=== PATIENT | male | born 2000 | race Asian ===

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

== ENCOUNTER 2024-06-22 14:03 | Emergency (ER) | payer OTHER ==
[~2024-06-22] VITALS: Ht 162.6 cm; Wt 100.0 kg
[~2024-06-22 14:03] MED LIST changes: -LISI-660 PO; +METF500T PO
[2024-06-22 14:09] VITALS: BP 143/82; PULSE 126; RESP 16; TEMP 98.3; O2SAT 98
[2024-06-22 14:19] LABS: COVID AG,FIA SOURCE NASAL SWAB
[2024-06-22 14:36] LABS: SARS-COV2 (COVID) ANTIGEN,FIA Negative (Negative)
[2024-06-22 14:37] LABS: INFLUENZA TYPE A NEGATIVE FOR TYPE A (NEGATIVE); INFLUENZA TYPE B NEGATIVE FOR TYPE B (NEGATIVE)
[2024-06-22 16:00] LABS: BASOPHILS % (AUTO) 0.4 % (0.0-2.0); EOSINOPHILS % (AUTO) 1.5 % (1.0-6.0); HEMATOCRIT 43.9 % (41-53); HEMOGLOBIN 14.3 g/dL (13.5-17.5); MEAN CORPUSCULAR HEMOGLOBIN 27.9 pg (26.0-34.0); MEAN CORPUSCULAR HGB CONC 32.6 G/dL (31.0-37.0); MEAN CORPUSCULAR VOLUME 86 fL (80-100); MONOCYTES # (AUTO) 0.8 K/uL (0.1-1.0); MONOCYTES % (AUTO) 6.6 % (2.0-9.0); NEUTROPHILS # (AUTO) 7.6 K/uL (1.8-7.7); NEUTROPHILS % (AUTO) 65.5 % (40.0-70.0); PLATELET COUNT (AUTO) 353 K/uL (150-450); RED BLOOD CELL COUNT(AUTO) 5.14 MIL/uL (4.50-5.90); RED CELL DISTRIBUTION WIDTH 13.6 % (11.5-14.5); WHITE BLOOD COUNT (AUTO) 11.6 K/uL (4.5-11.0)
[2024-06-22 16:07] LABS: ANION GAP 13 mmol/L (8-16); CALCIUM, TOTAL 9.2 mg/dL (8.8-10.5); CARBON DIOXIDE 27 mmol/L (22-29); CHLORIDE 100 mmol/L (98-107); CREATININE 0.87 mg/dL (0.60-1.30); GLOMERULAR FILTR. RATE CALC > 60 mL/min (>60); GLUCOSE,RANDOM 193 mg/dL (70-110); POTASSIUM 3.8 mmol/L (3.5-5.1); SODIUM SERUM 140 mmol/L (136-145); UREA NITROGEN, BLOOD 10 mg/dL (7-18)
[2024-06-22 16:13] LABS: ALANINE AMINOTRANSFERASE 31 U/L (12-78); ALBUMIN 4.1 g/dL (3.4-5.0); ALKALINE PHOSPHATASE 97 U/L (46-116); ASPARTATE AMINOTRANSFERASE 16 U/L (15-37); BILIRUBIN,TOTAL 0.4 mg/dL (0.1-1.0); TOTAL PROTEIN, SERUM 7.7 g/dL (6.4-8.2)
[2024-06-22] MEDS ORDERED: RALT400T PO (16:24)
[2024-06-22] MEDS ORDERED: EMTR1TAB53 PO (16:24)
[2024-06-22] MEDS: EMTRICITABINE/TENOFOVIR 200-300 MG TABLET PO ONE (17:07)
[2024-06-22] MEDS: RALTEGRAVIR 400 MG TABLET PO ONE (17:07)
== END 2024-06-22 17:11 | disposition home or self-care (01) ==
LOC: EMS 14:09
DX: J02.9 Acute pharyngitis, unspecified (principal); R53.83 Other fatigue; I10 Essential (primary) hypertension; E78.00 Pure hypercholesterolemia, unspecified; Z79.84 Long term (current) use of oral hypoglycemic drugs; Z20.822 Contact with and (suspected) exposure to COVID-19
CPT/HCPCS: 80048; 80076; 85025; 87804; 99283

== ENCOUNTER 2024-09-18 14:42 | Emergency (ER) | payer OTHER ==
[~2024-09-18] VITALS: Ht 162.6 cm; Wt 99.0 kg
[~2024-09-18 14:42] MED LIST changes: +EMTR1TAB53 PO; +RALT400T PO
[2024-09-18 14:49] VITALS: BP 139/89; PULSE 112; RESP 18; TEMP 98.1; O2SAT 98
[2024-09-18] MEDS ORDERED: ACET-3385 PO (15:39)
[2024-09-18] MEDS ORDERED: IBUP-1492 PO (15:39)
[2024-09-18] MEDS: ACETAMINOPHEN 500 MG TABLET PO ONE (15:55)
== END 2024-09-18 17:01 | disposition home or self-care (01) ==
LOC: EMS 14:42
DX: S92.352A Displaced fracture of fifth metatarsal bone, left foot, initial encounter for closed fracture (principal); I10 Essential (primary) hypertension; E78.00 Pure hypercholesterolemia, unspecified; Z79.84 Long term (current) use of oral hypoglycemic drugs; X50.1XXA Overexertion from prolonged static or awkward postures, initial encounter; Y93.89 Activity, other specified; Y92.89 Other specified places as the place of occurrence of the external cause; Y99.8 Other external cause status
CPT/HCPCS: 29515; 99284